=== PATIENT | female | born 1970 | race Caucasian/White ===

== ENCOUNTER 2024-12-31 01:29 | Emergency (ER) | payer OTHER ==
[~2024-12-31] VITALS: Ht 165.1 cm; Wt 91.0 kg
[2024-12-31 01:44] VITALS: O2SAT 98
[2024-12-31 03:37] VITALS: BP 168/97; PULSE 83; RESP 18; TEMP 36.5; O2SAT 98
== END 2024-12-31 04:15 ==
LOC: ER 01:59
DX: S09.90XA Unspecified injury of head, initial encounter (principal); S40.011A Contusion of right shoulder, initial encounter; S50.01XA Contusion of right elbow, initial encounter; S80.01XA Contusion of right knee, initial encounter; I10 Essential (primary) hypertension; W18.30XA Fall on same level, unspecified, initial encounter; Y93.89 Activity, other specified; Y92.89 Other specified places as the place of occurrence of the external cause; Y99.8 Other external cause status
CPT/HCPCS: 73030; 99284